=== PATIENT | female | born 1955 | race Caucasian/White ===

== ENCOUNTER 2020-04-01 07:59 | Day surgery (SDC) | payer BC, SELFPAY ==
[2020-03-29 12:02] VITALS: BMI 31.3
--- NOTE | 2020-03-31 12:04 | HO.ANESPROP2 ---
HPI - Anesthesia Eval Consult details Narrative: 64yo F for Colonoscopy PMFSH Past Medical History Medical History Arthritis HTN (hypertension) Intermittent palpitations Pre-diabetes Sleep apnea Surgical History Surgical History H/O colonoscopy History of total left knee replacement Hx of section Hx of dilation and curettage Social History Social History Smoking Status: Never smoker Use of substances other than those prescribed or required for medical reasons: No Advance Directives Information Provided: No Recently lost weight without trying: No Meds Allergies Allergy/AdvReac Type Severity Reaction Status Date / Time No Known Allergies Allergy Verified 03/29/20 12:09 Home Medications Medication Instructions Recorded Confirmed Type aspirin [Aspirin Low Dose] 81 mg PO DAILY 03/29/20 04/01/20 History cholecalciferol (vitamin D3) 50 mcg PO DAILY 03/29/20 03/29/20 History [Vitamin D3] cinnamon bark 500 mg PO DAILY 03/29/20 03/29/20 History glucosamine sulfate 1,000 mg PO BID 03/29/20 03/29/20 History metoprolol succinate 50 mg PO DAILY 03/29/20 04/01/20 History salmon oil-omega-3 fatty acids 1 cap PO DAILY 03/29/20 03/29/20 History simvastatin 40 mg PO BEDTIME 03/29/20 03/29/20 History turmeric root extract 500 mg PO DAILY 03/29/20 03/29/20 History ubidecarenone-omega 3-vit E 1 cap PO DAILY 03/29/20 03/29/20 History Exam Exam Date and Time: March 31, 2020 1204 Height,Weight and Vital Signs: Height 5 ft 7 in Weight 90.718 kg Assessment and Plan Assessment Anesthesia Assessment: Chart Reviewed
[2020-04-01 08:18] VITALS: BP 137/75; PULSE 63; RESP 18; TEMP 526.4; TEMP 979.6; O2SAT 96
--- NOTE | 2020-04-01 08:24 | MHC.SHP ---
Pre-Procedural Eval Section B Chief Complaint: HX of Colon Polyps Details of Present Illness: here for surveillance due to removal of tubulovillous adenoma in past colon cancer hx in uncle Relevant Family History (Specify if Yes): Yes Relevant Social History: None Present Medications: see Short Stay Collaborative assessment Medical History: Significant History (MANUEL< HTN) History of Previous Operations: Relevant previous surgery/procedure and date(s) (, knee surgery) Allergies: Allergies Allergy/AdvReac Type Severity Reaction Status Date / Time No Known Allergies Allergy Verified 03/29/20 12:09 Review of Systems Sugical H&P ROS: Negative: Constitution, Cardiovascular, Respiratory, Neurological, Psychiatric, Hem-Onc, Allergic/Immunologic, Gastrointestinal, Genitourinary, Musculoskeletal, Integumentary, Endocrine and Eyes/Ears/Nose/Throat Exam Surgical H&P Exam: Normal: HEENT, Normal: Heart, Normal: Lungs, Normal: Extremities, Normal: Abdomen, Normal: Skin and Normal: Neurological Plan Diagnosis/Plan: Unchanged Patient has been examined and remains a candidate for the planned procedure, ie colonoscopy today
[2020-04-01] MEDS: Lactated Ringers 1,000 ML 100 ML IVCONT (08:36)
--- NOTE | 2020-04-01 09:10 | P.OP_ITS ---
Operative Note Operative Note Narrative: Operative Information Procedure Description: Colonoscopy COLONOSCOPY Instrument: Olympus variable stiffness pediatric scope 190L Colonoscopy Monitoring: Vital signs and clinical assessment, continuous EKG monitoring, Pulse oximetry, Carbon Dioxide monitoring and blood pressure monitoring were done throughout the procedure. Colon withdrawal time was 11 minutes. Procedure: The patient was placed in the left lateral decubitis position and pre-procedure medications were administered. After a digital rectal examination of the ano-rectum, the video colonoscope was inserted into the rectum and advanced through the colon to the cecum/TI. The colonoscope was slowly withdrawn in a retrograde panoramic fashion and the colon mucosa was carefully examined including a retroflexed view of the rectum. Findings and interventions are described below. Procedure Difficulty:easy Findings: Terminal Ileum-normal Cecum:normal, scar from previous resection of large polyp lesion noted, no residual tissue seen Ascending Colon: normal Transverse Colon -normal Descending Colon: 8-9 mm sessile polypoid lesion removed with cold snare Sigmoid Colon: sessile polyp 8 mm remvoed with forceps Rectum: Retroflexion with small internal hemorrhoids, grade I Anorectum - normal Colon preparation: [place] Bowel Preparation Scale Right colon; 3 Transverse colon: 3 Left colon; 2 (0 = Unprepared colon segment with mucosa not seen due to solid stool that cannot be cleared. 1 = Portion of mucosa of the colon segment seen, but other areas of the colon segment not well seen due to staining, residual stool and/or opaque liquid. 2 = Minor amount of residual staining, small fragments of stool and/or opaque liquid, but mucosa of colon segment seen well. 3 = Entire mucosa of colon segment seen well with no residual staining, small fragments of stool or opaque liquid) Impression and Post Procedure Diagnosis: polyps internal hemorrhoids Plan: High fiber diet leaflet Avoid straining at stool, epsom salts and sitz bath prn, anusol supps or cream prn Repeat Colonoscopy in 2-3 years or earlier if clinically indicated Above findings were reviewed with the patient and relevant handouts were provided if indicated.
--- NOTE | 2020-04-01 09:10 | PM.OP ---
Brief Operative Note Date of procedure: 04/01/20 Pre-op diagnosis: hx of tubulovilous adenoma, surveillance Post-op diagnosis: same Procedure: see op note, colonoscopy Surgeon: Elyse Marquez MD Anesthesia: MAC Estimated blood loss (mL): 0 Condition: stable Disposition: PACU
--- NOTE | 2020-04-01 09:39 | HO.ANESPROP2 ---
[facility] Past Medical History Medical History Arthritis HTN (hypertension) Intermittent palpitations Pre-diabetes Sleep apnea Surgical History Surgical History H/O colonoscopy History of total left knee replacement Hx of section Hx of dilation and curettage Social History Social History Smoking Status: Never smoker Use of substances other than those prescribed or required for medical reasons: No Advance Directives Information Provided: No Recently lost weight without trying: No Meds Allergies Allergy/AdvReac Type Severity Reaction Status Date / Time No Known Allergies Allergy Verified 03/29/20 12:09 Home Medications Medication Instructions Recorded Confirmed Type aspirin [Aspirin Low Dose] 81 mg PO DAILY 03/29/20 04/01/20 History cholecalciferol (vitamin D3) 50 mcg PO DAILY 03/29/20 03/29/20 History [Vitamin D3] cinnamon bark 500 mg PO DAILY 03/29/20 03/29/20 History glucosamine sulfate 1,000 mg PO BID 03/29/20 03/29/20 History metoprolol succinate 50 mg PO DAILY 03/29/20 04/01/20 History salmon oil-omega-3 fatty acids 1 cap PO DAILY 03/29/20 03/29/20 History simvastatin 40 mg PO BEDTIME 03/29/20 03/29/20 History turmeric root extract 500 mg PO DAILY 03/29/20 03/29/20 History ubidecarenone-omega 3-vit E 1 cap PO DAILY 03/29/20 03/29/20 History Exam Exam Date and Time: April 01, 2020 0939 Height,Weight and Vital Signs: Height 5 ft 7 in Weight 90.718 kg Last Vital Signs Temp 979.6 F H 04/01/20 08:18 Pulse 63 04/01/20 08:18 Resp 18 04/01/20 08:18 BP 137/75 04/01/20 08:18 Pulse Ox 96 04/01/20 08:18 Assessment and Plan Final Anesthetic Review NPO: Yes ASA Class: II Final Preanesthetic Review: No Changes in Pt Med Stat and Meds/Allgs Chart Reviewed Patient Risk: Low Procedure Risk: Low Anesthetic Plan Anesthetic Plan: MAC: Disposition: Standard PACU
[2020-04-01 09:51] VITALS: BP 108/58; PULSE 57; RESP 16; TEMP 36.6; O2SAT 94
[2020-04-01 10:09] VITALS: BP 108/59; PULSE 52; RESP 15; TEMP 36.6; O2SAT 99
--- NOTE | 2020-04-01 10:43 | HO.POSTANES ---
Post Anesthesia Evaluation Post Anesthesia Evaluation Vital Signs: Vital Signs Temp Pulse Resp BP Pulse Ox 04/01/20 10:09 97.9 F 52 15 108/59 L 99 04/01/20 09:51 97.9 F 57 16 108/58 L 94 04/01/20 08:18 979.6 F H 63 18 137/75 96 Anesthesia: Monitored Mental Status: Awake Pain Control: Satisfactory Nausea/Vomiting: None Hydration: Adequate Anesthesia-Related Issues: No Anes. Related Issues
== END 2020-04-01 10:47 | disposition home or self-care (01) ==
PROVIDERS: Internal Medicine Gastroenterology; PCP Physician Assistant; Visit Provider Anesthesiology
PROC: 0DJD8ZZ Inspection of Lower Intestinal Tract, Via Natural or Artificial Opening Endoscopic (ICD-10-PCS; CPT 45378; principal; 2020-04-01 09:00)
DX: Z12.11 Encounter for screening for malignant neoplasm of colon (principal); Z86.010 Personal history of colon polyps; K63.5 Polyp of colon; K64.0 First degree hemorrhoids; I10 Essential (primary) hypertension; G47.33 Obstructive sleep apnea (adult) (pediatric); R73.03 Prediabetes; Z96.652 Presence of left artificial knee joint; Z79.899 Other long term (current) drug therapy
CPT/HCPCS: 45385; 45380; 88305

== ENCOUNTER → 2020-04-13 11:01 | Outpatient (BNVA) | payer BC, SELFPAY | PROVIDERS: PCP Physician Assistant; Referring Provider Physician Assistant; Visit Provider Internal Medicine Gastroenterology | DX: Z76.89 Persons encountering health services in other specified circumstances (principal) ==

== ENCOUNTER 2023-04-05 06:01 | Day surgery (SDC) | payer MEDICARE, SELFPAY ==
--- NOTE | 2023-04-04 11:55 | HO.ANESPROP2 ---
Documented by User: Kayla Beard NP 04/04/23 11:56 HPI - Anesthesia Eval Consult details Narrative: 67yo F for Colonoscopy PMFSH Active Problems Active Problems: All Active Problems (Updated 04/13/20 @ 11:20 by Elyse Marquez MD) Adenomatous colon polyp (Acute) Past Medical History Medical History Arthritis HTN (hypertension) Intermittent palpitations Pre-diabetes Sleep apnea Family History Family History (Updated 04/13/20 @ 11:06 by Virgen Ontiveros CMA) Father Family history of Alzheimer's disease Family history of high blood pressure Mother Hx of diabetes insipidus Family history of high blood pressure History of high cholesterol Surgical History Surgical History H/O colonoscopy History of total left knee replacement Hx of section Hx of dilation and curettage Social History Social History (Updated 04/13/20 @ 11:06 by Virgen Ontiveros CMA) Alcohol intake: current Alcohol intake frequency: a few times a week Alcohol type: wine Patient Tobacco Use Status: Never used Tobacco Are you DNR?: No Advance Directives: No Advance Directives Information Provided: Yes Nutrition Risks: No Nutritional Risk Meds Allergies Allergy/AdvReac Type Severity Reaction Status Date / Time No Known Allergies Allergy Verified 04/05/23 06:14 Home Medications Medication Instructions Recorded Confirmed Last Taken Type cholecalciferol (vitamin D3) 50 50 mcg PO DAILY 03/29/20 04/05/23 Unknown History mcg (2,000 unit) capsule (Vitamin D3) cinnamon bark 500 mg capsule 500 mg PO DAILY 03/29/20 04/05/23 Unknown History glucosamine sulfate 1,000 mg 1,000 mg PO BID 03/29/20 04/05/23 Unknown History capsule metoprolol succinate 50 mg 50 mg PO DAILY 03/29/20 04/05/23 04/01/20 07:30 History tablet,extended release 24 hr simvastatin 40 mg tablet 40 mg PO BEDTIME 03/29/20 04/05/23 Unknown History turmeric root extract 500 mg 500 mg PO DAILY 03/29/20 04/05/23 Unknown History capsule Exam Exam Date and Time: April 04, 2023 115 Assessment and Plan Assessment Anesthesia Assessment: Chart Reviewed Documented by User: Jeremy Ashton MD 04/05/23 08:23 PMF Past Medical History Medical History Arthritis HTN (hypertension) Intermittent palpitations Pre-diabetes Sleep apnea Family History Family History (Updated 04/13/20 @ 11:06 by Virgen Ontiveros CMA) Father Family history of Alzheimer's disease Family history of high blood pressure Mother Hx of diabetes insipidus Family history of high blood pressure History of high cholesterol Family history of problems with anesthesia: No Surgical History Surgical History H/O colonoscopy History of total left knee replacement Hx of section Hx of dilation and curettage History of Problems with Anesthesia: No Social History Social History (Updated 04/13/20 @ 11:06 by Virgen Ontiveros CMA) Alcohol intake: current Alcohol intake frequency: a few times a week Alcohol type: wine Patient Tobacco Use Status: Never used Tobacco Are you DNR?: No Advance Directives: No Advance Directives Information Provided: Yes Nutrition Risks: No Nutritional Risk Meds Allergies Allergy/AdvReac Type Severity Reaction Status Date / Time No Known Allergies Allergy Verified 04/05/23 06:14 Home Medications Medication Instructions Recorded Confirmed Last Taken Type cholecalciferol (vitamin D3) 50 50 mcg PO DAILY 03/29/20 04/05/23 Unknown History mcg (2,000 unit) capsule (Vitamin D3) cinnamon bark 500 mg capsule 500 mg PO DAILY 03/29/20 04/05/23 Unknown History glucosamine sulfate 1,000 mg 1,000 mg PO BID 03/29/20 04/05/23 Unknown History capsule metoprolol succinate 50 mg 50 mg PO DAILY 03/29/20 04/05/23 04/01/20 07:30 History tablet,extended release 24 hr simvastatin 40 mg tablet 40 mg PO BEDTIME 03/29/20 04/05/23 Unknown History turmeric root extract 500 mg 500 mg PO DAILY 03/29/20 04/05/23 Unknown History capsule Exam Airway Mallampati Class: II TM Dist: >3cm Neck ROM: Full Loose/Missing/Broken Teeth: Yes Assessment and Plan Assessment Anesthesia Assessment: Anesthesia Plan Discussed Final Anesthetic Review Family History of Problems with Anesthesia: No History of Problems with Anesthesia: No NPO: Yes ASA Class: II Final Preanesthetic Review: No Changes in Pt Med Stat, Meds/Allgs Chart Reviewed, Consent Obtained/Reviewed and Anes Risks/Benef Reviewed Patient Risk: Low Procedure Risk: Low Anesthetic Plan Anesthetic Plan: MAC: Disposition: Standard PACU
[2023-04-05 06:07] VITALS: BMI 28.1
[2023-04-05] MEDS: Lactated Ringers 1,000 ML 100 ML IVCONT (06:20)
[2023-04-05 06:29] VITALS: BP 134/69; PULSE 65; RESP 18; TEMP 36.7; O2SAT 96
--- NOTE | 2023-04-05 06:48 | MHC.SHP ---
Pre-Procedural Eval Section A Date of Service: 04/05/23 Section B Chief Complaint: Encounter for screening for malignant neoplasm Details of Present Illness: prior polyp removal for surveillance Relevant Family History (Specify if Yes): No Relevant Social History: None Present Medications: see Short Stay Collaborative assessment Medical History: Significant History (Arthritis HTN (hypertension) Intermittent palpitations Pre-diabetes Sleep apnea) History of Previous Operations: Relevant previous surgery/procedure and date(s) (H/O colonoscopy History of total left knee replacement Hx of section Hx of dilation and curettage) Allergies: Allergies Allergy/AdvReac Type Severity Reaction Status Date / Time No Known Allergies Allergy Verified 04/05/23 06:14 Review of Systems Sugical H&P ROS: Negative: Constitution, Cardiovascular, Respiratory, Neurological, Psychiatric, Hem-Onc, Allergic/Immunologic, Gastrointestinal, Genitourinary, Musculoskeletal, Integumentary, Endocrine and Eyes/Ears/Nose/Throat Exam Surgical H&P Exam: Normal: HEENT, Normal: Heart, Normal: Lungs, Normal: Extremities, Normal: Abdomen, Normal: Skin and Normal: Neurological Plan Diagnosis/Plan: Unchanged I have reviewed the history and physical and performed a pertinent physical examination on my patient. No changes have occurred unless specified. Time Spent With Patient Time: Total time managing care of this patient today ____ minutes.
--- NOTE | 2023-04-05 07:27 | PC.NURSE ---
Petrona Cox, [place]ian switch adjuster, was present but patient stated that he did not need her to interpret. Patient speaks and understands [place] very well. Patient stated intperpreter was not necessary and she left.
--- NOTE | 2023-04-05 07:47 | P.OP_ITS ---
Operative Note Operative Note Date of Service: 04/05/23 Narrative: Operative Information Procedure Description: Colonoscopy Indication: surveillance, hx of advanced polyp Anesthesia: MAC COLONOSCOPY Instrument: Olympus variable stiffness pediatric scope 190L Colonoscopy Monitoring: Vital signs and clinical assessment, continuous EKG monitoring, Pulse oximetry, Carbon Dioxide monitoring and blood pressure monitoring were done throughout the procedure. Colon withdrawal time was 10 minutes. Procedure: The patient was placed in the left lateral decubitis position and pre-procedure medications were administered. After a digital rectal examination of the ano-rectum, the video colonoscope was inserted into the rectum and advanced through the colon to the cecum/TI. The colonoscope was slowly withdrawn in a retrograde panoramic fashion and the colon mucosa was carefully examined including a retroflexed view of the rectum. Findings and interventions are described below. Procedure Difficulty: moderate due to looping, left side lift Findings: Terminal Ileum-normal Cecum:normal, old scar from prior resection noted Ascending Colon: normal Transverse Colon -normal Descending Colon:normal Sigmoid Colon: normal, mild melanosis coli Rectum: Retroflexion with small internal hemorrhoids, grade I Anorectum - normal Colon preparation: [place] Bowel Preparation Scale Right colon; 2 Transverse colon: 3 Left colon; 3 (0 = Unprepared colon segment with mucosa not seen due to solid stool that cannot be cleared. 1 = Portion of mucosa of the colon segment seen, but other areas of the colon segment not well seen due to staining, residual stool and/or opaque liquid. 2 = Minor amount of residual staining, small fragments of stool and/or opaque liquid, but mucosa of colon segment seen well. 3 = Entire mucosa of colon segment seen well with no residual staining, small fragments of stool or opaque liquid) Impression and Post Procedure Diagnosis: internal hemorrhoids melnosis coli Plan: High fiber diet leaflet Avoid straining at stool, epsom salts and sitz bath, anusol supps or cream Repeat Colonoscopy in 5 years due to hx of advanced polyp or earlier if clinically indicated Above findings were reviewed with the patient and relevant handouts were provided if indicated.
[2023-04-05 08:21] VITALS: BP 103/53; PULSE 55; RESP 19; TEMP 36.2; O2SAT 98
[2023-04-05 08:36] VITALS: BP 138/62; PULSE 50; RESP 16; TEMP 36.2; O2SAT 100
== END 2023-04-05 08:57 | disposition home or self-care (01) ==
PROVIDERS: PCP Physician Assistant; Visit Provider Internal Medicine Gastroenterology
PROC: 0DJD8ZZ Inspection of Lower Intestinal Tract, Via Natural or Artificial Opening Endoscopic (ICD-10-PCS; CPT 45378; principal; 2023-04-05 07:30)
DX: Z12.11 Encounter for screening for malignant neoplasm of colon (principal); K56.2 Volvulus; K63.89 Other specified diseases of intestine; K64.0 First degree hemorrhoids; Z86.010 Personal history of colon polyps; I10 Essential (primary) hypertension; R73.03 Prediabetes; G47.30 Sleep apnea, unspecified; Z99.89 Dependence on other enabling machines and devices
CPT/HCPCS: G0105

== ENCOUNTER → 2023-04-05 06:01 | Outpatient (BNV) | payer MEDICARE, SELFPAY | PROVIDERS: PCP Physician Assistant; Visit Provider Internal Medicine Gastroenterology | DX: Z12.11 Encounter for screening for malignant neoplasm of colon (principal); Z86.010 Personal history of colon polyps; K63.89 Other specified diseases of intestine; K64.0 First degree hemorrhoids | CPT/HCPCS: G0105 ==